=== PATIENT | female | born 1965 | race Caucasian/White ===

== ENCOUNTER 2018-10-11 12:52 | Day surgery (SDC) | payer BC ==
[2018-10-11] MEDS ORDERED: LIDOCAINE 2% MDV (20MG/ML) 20ML VIAL IV ONE (12:53)
[2018-10-11] MEDS ORDERED: PROPOFOL 10 MG/ML VIAL IV ONE (12:53)
--- NOTE | 2018-10-12 09:00 | Operative Note ---
DATE OF SURGERY: 10/11/2018 OPERATION: COLONOSCOPY to the cecum with cold snare polypectomy x4. INDICATION: Colorectal cancer screening. This is the patient's first examination. ANESTHESIA: Intravenous sedation was administered by the department of anesthesiology and included Diprivan titrated to effect. PROCEDURE: Following informed consent from this alert individual including a discussion of the risks and benefits of the procedure and an opportunity for the patient to ask questions, the patient was in the left lateral decubitus position. A digital rectal examination was performed. No abnormalities were noted. Following this, the Olympus CF180 video colonoscope was inserted into the rectum without resistance. The rectal mucosa had a normal appearance with normal folds and distensibility. The sigmoid colon was cannulated and demonstrated a polyp measuring 7-8 mm in size. It was soft and sessile and removed with a cold polypectomy snare and suctioned through the colonoscope into a collection trap. The colonoscope was further advanced up through the remainder of the bowel to the level of the cecum which was identified by noting the appendiceal orifice and ileocecal valve. The colon preparation overall was good. From the base of the cecum, the colonoscope was slowly withdrawn. In the transverse colon, there was a 6 mm sessile polyp noted which was likewise removed with cold snare polypectomy and suctioned through the endoscope into a trap. There were 2 additional polyps noted at the rectosigmoid region measuring 5 mm in size each removed with cold snare polypectomy as well. Retroflexion in the rectum revealed small internal hemorrhoids. The endoscope was straightened and removed. The patient tolerated the procedure well and was returned to the recovery area in stable condition. IMPRESSION: 1. A 6 mm transverse colon polyp removed with cold snare polypectomy. 2. A 7-8 mm sigmoid polyp removed with cold snare polypectomy. 3. Two 5 mm rectosigmoid polyps removed with cold snare polypectomy. 4. Small internal hemorrhoids. RECOMMENDATIONS: All the polyps appeared to be quite benign, perhaps even hyperplastic but this is not clear. Further recommendations will be forthcoming pending results of pathology obtained today. Followup will also be with Dr. Gill. As always, thank you for allowing me to participate in the care of your patient. CC: Garry LOBATO
== END 2018-10-11 14:58 | disposition home or self-care (01) ==
LOC: HOP 12:52
PROVIDERS: ATTEND Internal Medicine Gastroenterology
DX: Z12.11 Encounter for screening for malignant neoplasm of colon (principal); K63.5 Polyp of colon; D12.7 Benign neoplasm of rectosigmoid junction; M06.9 Rheumatoid arthritis, unspecified